=== PATIENT | female | born 2000 | race Caucasian/White ===

== ENCOUNTER 2020-10-18 18:47 | Emergency (ER) | payer OTHER, SELFPAY ==
[2020-10-18 18:59] VITALS: BP 124/80; PULSE 113; RESP 16; TEMP 37.1; O2SAT 99
--- NOTE | 2020-10-18 19:19 | ED.GENADULT ---
HPI - General Adult General Chief complaint: Dental/Oral Stated complaint: Sores In Mouth Time Seen by Provider: 10/18/20 19:19 Source: patient Mode of arrival: ambulatory Limitations: no limitations History of Present Illness HPI narrative: 20-year-old female patient presents to the [facility] with complaints of sores in her mouth that started yesterday. Patient states that she typically gets canker sores due to drinking a lot of acidic drinks and states that she does have a lot of stress as well. Patient states that yesterday three popped up at once and she has been using [id number] Orajel but has not been helping with the pain. Denies taking any Tylenol or ibuprofen. Denies any fevers, body aches or chills. Related Data Home Medications Medication Instructions Recorded Confirmed amitriptyline 10 mg PO HS 10/18/20 10/18/20 desogestrel-ethinyl estradiol 1 tablet PO DAILY 10/18/20 10/18/20 [Isibloom] Allergies Allergy/AdvReac Type Severity Reaction Status Date / Time No Known Allergies Allergy Verified 10/18/20 19:15 Review of Systems Review of Systems: Narrative: CONSTITUTIONAL: Denies fever, chills, or sweats. EYES: Denies visual changes, redness, or discharge. ENT: Denies rhinorrhea, congestion, sore throat, or otalgia. Positive sores to mouth since yesterday CARDIOVASCULAR: Denies chest pain, palpitations, or edema. RESPIRATORY: Denies cough or dyspnea. GASTROINTESTINAL: Denies abdominal pain, nausea, vomiting, or diarrhea. GENITOURINARY: Denies dysuria or hematuria. SKIN: Denies rash or itching. MUSCULOSKELETAL: Denies back pain, joint pain, or myalgia. NEUROLOGIC: Denies headache, numbness, or weakness. PSYCHIATRIC: Denies anxiety or depression. [facility] Past Medical History Medical History (Updated 10/18/20 @ 19:26 by MUKUND Reich) Migraines Comments At the time of my signature I agree with nursing past medical history, surgical, social, and family history. There is no relevant family history pertinent to the presenting complaint. Exam Narrative: Exam Narrative: GENERAL: Well-appearing, well-nourished, and in no acute distress. HEAD: Normocephalic, atraumatic. EYES: PERRLA and EOMI. ENT: Nares clear, no rhinorrhea or epistaxis. Mucous membranes moist. Patient does have some's ulcers one noted on the tip of the tongue, one at the floor of the mouth and another one on the right inner cheek. There is no open wounds or drainage noted. NECK: Supple. No lymphadenopathy CHEST: Clear to auscultation. No respiratory distress. HEART: Regular rate and rhythm. No murmur heard. Normal peripheral pulses. ABDOMEN: Soft, nontender, nondistended, normal active bowel sounds. EXTREMITIES: Normal range of motion. No edema. SKIN: Warm, dry, no rash. NEURO: No focal deficits. Alert and oriented x3. Course Vital Signs Vital signs: Vital Signs Temperature 37.1 C 10/18/20 18:59 Pulse Rate 113 H 10/18/20 18:59 Respiratory Rate 16 10/18/20 18:59 Blood Pressure 124/80 10/18/20 18:59 Pulse Oximetry 99 10/18/20 18:59 Temperature 37.1 C 10/18/20 18:59 Pulse Rate 113 H 10/18/20 18:59 Respiratory Rate 16 10/18/20 18:59 Blood Pressure 124/80 10/18/20 18:59 Pulse Oximetry 99 10/18/20 18:59 Vital signs reviewed The patient has been informed that they may have pre-hypertension or Hypertension based on a BP reading in the department. I recommend that the patient call the primary care provider listed on their discharge instructions or a physician of their choice this week to arrange follow up for further evaluation of possible pre-hypertension or Hypertension Medical Decision Making Differential Diagnosis Differential Diagnosis: Differential diagnosis: Dental caries, periodontal disease, avulsed tooth, tooth infections, mandibular infection, Phillip's angiana, upper tooth infection, dry socket, gingivitis, acute necrotizing ulcerative gingivitis, sialolithiasis. Plan of ca
== END 2020-10-18 19:30 | disposition home or self-care (01) ==
PROVIDERS: Emergency Provider Nurse Practitioner Family; PCP Family Medicine
DX: K12.0 Recurrent oral aphthae (principal)
CPT/HCPCS: 99213; G0463

== ENCOUNTER 2021-06-06 09:33 | Emergency (ER) | payer OTHER, SELFPAY ==
[2021-06-06 09:44] VITALS: BP 112/76; PULSE 81; RESP 16; TEMP 36.6; O2SAT 99
--- NOTE | 2021-06-06 10:02 | ED.GENADULT ---
HPI - General Adult General Chief complaint: Dental/Oral Stated complaint: Toothache Time Seen by Provider: 06/06/21 10:14 Source: patient and RN notes reviewed Mode of arrival: ambulatory Limitations: no limitations History of Present Illness HPI narrative: 21-year-old female presents concern for right upper dental pain. Reports pain started 1 month ago, she has been taking amoxicillin prescribed by dentist for 1 week, however she is not having improvement in symptoms. Reports she has a broken tooth in that area. She denies difficulty swallowing, fever, body aches, nausea. Reports she has been taking Tylenol. complaint: Dental pain Related Data Home Medications Medication Instructions Recorded Confirmed amitriptyline 10 mg PO HS 10/18/20 06/06/21 desogestrel-ethinyl estradiol 1 tablet PO DAILY 10/18/20 06/06/21 [Isibloom] amoxicillin 500 mg PO Q8H 06/06/21 06/06/21 Allergies Allergy/AdvReac Type Severity Reaction Status Date / Time No Known Allergies Allergy Verified 06/06/21 10:03 Review of Systems Review of Systems: CONSTITUTIONAL: Denies malaise, chills, sweats, or fever. EYES: Denies visual changes ENT: Denies rhinorrhea, congestion, sinus pain, otalgia or sore throat. CARDIOVASCULAR: Denies chest pain, palpitations, or edema. RESPIRATORY: Denies cough or dyspnea. GASTROINTESTINAL: Denies abdominal pain, nausea, vomiting SKIN: Denies rash or itching. MUSCULOSKELETAL: Denies myalgia. NEUROLOGIC: Denies headache. All systems reviewed & are unremarkable except as noted in HPI and below PMFSH Past Medical History Medical History (Updated 06/06/21 @ 10:23 by Bernadette Mills NP) Migraines Comments At time of signature, agree with nursing past medical, surgical, social and family history. There is no relevant family history pertinent to the presenting complaint Exam Narrative: GENERAL: Well-appearing, well-nourished, and in no acute distress. HEAD: Normocephalic, atraumatic. EYES: PERRLA, sclera clear, and EOMI. No nystagmus. ENT: Nares clear, turbinates pink, no rhinorrhea or epistaxis. Mucous membranes moist. TM pearly de leon with sharp light reflex bilaterally; no tragal tenderness. Oropharynx without erythema or lesions. Tonsils not enlarged and without exudate. NECK: Supple. No lymphadenopathy. No jugular venous distension, thyromegaly, or carotid bruits. Carotids were easily palpable bilaterally. CHEST: No respiratory distress. Clear to auscultation. No bony deformities, no asymmetry. Speaks in full sentences. HEART: Regular rate and rhythm. No murmur heard. Normal peripheral pulses. ABDOMEN: Soft, nontender, nondistended, normal active bowel sounds, no palpable masses. EXTREMITIES: Normal range of motion. No edema. Normal strength and sensation. SKIN: Warm, dry, no visible rash. NEURO: Alert and oriented x3. No focal deficits. Cranial nerves II through XII grossly intact PSYCH: Normal mood and affect Course Course Emergency Course: Patient is aware of diagnosis, understands and agrees to treatment plan. Anticipatory guidance given. Patient agrees to follow-up as directed and is aware of reasons to seek care at the emergency department. Portions of this record may have been created with voice recognition software Vital Signs Vital signs: Vital Signs Temperature 98 F 06/06/21 09:44 Pulse Rate 81 06/06/21 09:44 Respiratory Rate 16 06/06/21 09:44 Blood Pressure 112/76 06/06/21 09:44 Pulse Oximetry 99 06/06/21 09:44 Temperature 98 F 06/06/21 09:44 Pulse Rate 81 06/06/21 09:44 Respiratory Rate 16 06/06/21 09:44 Blood Pressure 112/76 06/06/21 09:44 Pulse Oximetry 99 06/06/21 09:44 Reviewed. Medical Decision Making MDM Narrative Medical decision making narrative: Patients pain and complaint coupled with physical findings are consistant with dentalgia. There are no focal signs of space occupying lesions that are compromising to the airway; no dysphagia, odynoph
== END 2021-06-06 10:33 | disposition home or self-care (01) ==
PROVIDERS: Emergency Provider Nurse Practitioner; PCP Family Medicine
DX: K08.89 Other specified disorders of teeth and supporting structures (principal); F41.9 Anxiety disorder, unspecified
CPT/HCPCS: 99213; G0463

== ENCOUNTER 2021-11-13 18:14 | Emergency (ER) | payer OTHER, SELFPAY ==
[2021-11-13 18:21] VITALS: BP 110/84; PULSE 77; RESP 16; TEMP 36.7; O2SAT 100
--- NOTE | 2021-11-13 19:03 | ED.URI ---
HPI - URI/Sore Throat General Chief Complaint: Upper Respiratory Infection Stated Complaint: Sore Throat Time Seen by Provider: 11/13/21 19:03 Source: patient and RN notes reviewed Mode of arrival: ambulatory Limitations: no limitations History of Present Illness HPI Narrative: 21-year-old female presenting for complaint of hoarse voice, onset today. She states 4 days ago throat felt scratchy and she had a low-grade fever of 100.4. She has been taking cough drops for symptoms. She denies associated headache, nausea, sinus congestion, fevers or chills. She denies sick contacts. She is not vaccinated for COVID or flu. Related Data Allergies Allergy/AdvReac Type Severity Reaction Status Date / Time No Known Allergies Allergy Verified 11/13/21 18:41 Review of Systems Review of Systems: CONSTITUTIONAL: Denies malaise, chills, sweats, fever EYES: Denies visual changes, redness, or discharge ENT: Denies sinus pain, otalgia CARDIOVASCULAR: Denies chest pain, palpitations, edema RESPIRATORY: Reports cough Denies dyspnea GASTROINTESTINAL: Denies abdominal pain, nausea, vomiting, diarrhea SKIN: Denies rash or itching MUSCULOSKELETAL: Denies myalgia NEUROLOGIC: Denies headache [facility] Past Medical History Medical History (Updated 11/13/21 @ 19:09 by Asia Chahal, ROCK SINGER) Migraines Exam Narrative: GENERAL: well appearing, nontoxic no acute distress. HEAD: Normocephalic EYES: conjunctivae clear ENT: Mucous membranes moist. TM pearly de leon with dull light reflex bilaterally; no tragal tenderness. Oropharynx erythematous without lesions or exudate, no drooling, no hoarseness, no trismus, uvula midline. Voice is hoarse, No tripod positioning, muffled voice, soft palate or pharyngeal wall bulging NECK: Supple. No lymphadenopathy CHEST: Clear to auscultation, breath sounds equal. No wheezing, rhonchi, rales, or stridor. No respiratory distress, speaks in full sentences. HEART: Regular rate and rhythm. No murmur heard. SKIN: Warm, dry, no rash. NEURO: Alert and oriented x3. PSYCH: Normal mood and affect Course Course Emergency Course: Patient is aware of diagnosis, understands and agrees to treatment plan. Anticipatory guidance given. Patient agrees to follow-up as directed and is aware of reasons to seek care at the emergency department. Portions of this record may have been created with voice recognition software Level of Care: Express Care Visit Vital Signs Vital signs: Vital Signs Temperature 98.1 F 11/13/21 18:21 Pulse Rate 77 11/13/21 18:21 Respiratory Rate 16 11/13/21 18:21 Blood Pressure 110/84 11/13/21 18:21 Pulse Oximetry 100 11/13/21 18:21 Temperature 98.1 F 11/13/21 18:21 Pulse Rate 77 11/13/21 18:21 Respiratory Rate 16 11/13/21 18:21 Blood Pressure 110/84 11/13/21 18:21 Pulse Oximetry 100 11/13/21 18:21 reviewed MDM - URI/Sore Throat MDM Narrative Medical decision making narrative: strep negative she is advised on supportive treatment at this time. Differential Diagnosis Differential diagnosis: Likely upper respiratory infection, sinusitis and viral infection Lab Data Attestation: I reviewed the patient's lab results. Labs: Strep Screen Presumptive Negative *(Reference Range: Negative)* Discharge Plan Discharge Clinical Impression: Pharyngitis Qualifiers: Pharyngitis/tonsillitis etiology: unspecified etiology Qualified Code(s): J02.9 - Acute pharyngitis, unspecified Patient Disposition: Home, Self-Care Condition: Stable Instructions: Antibiotic Form, Pharyngitis (ED) Additional Instructions: Rapid strep swab was negative today You will be notified in a few days if the culture comes back positive for strep, and appropriate antibiotics will be called in at that time. if symptoms are due to a viral illness, it is not treated with antibiotics. Viral symptoms can be present for up to 10-14 days
== END 2021-11-13 19:10 | disposition home or self-care (01) ==
PROVIDERS: Emergency Provider Nurse Practitioner Family; PCP Family Medicine
DX: J02.9 Acute pharyngitis, unspecified (principal)
CPT/HCPCS: 87081; 87880; 99213; G0463

== ENCOUNTER 2022-05-20 08:16 | Emergency (ER) | payer OTHER, SELFPAY ==
[2022-05-20 08:20] VITALS: BP 124/67; PULSE 76; RESP 16; TEMP 36.4; O2SAT 100
--- NOTE | 2022-05-20 08:30 | ED.SKABFB ---
HPI - Skin/Abscess/Foreign Bdy General Chief complaint: Skin/Abscess/Foreign Body Stated complaint: poss hand foot mouth Time Seen by Provider: 05/20/22 08:25 Source: patient and RN notes reviewed History of Present Illness HPI narrative: patient is a 22-year-old female who presents to the Urgent Care with complaints of possible [id number] after exposure at work. Patient states that this morning she woke up with 2 blisters around her upper lip. Patient denies any fevers or other symptoms. No acute distress noted. Patient aware of the plan of care. Some parts of this dictation were generated by voice recognition software and may contain typographical and/or grammatical inaccuracies. Related Data Home Medications Medication Instructions Recorded Confirmed amitriptyline 10 mg tablet 10 mg PO QHS 05/20/22 05/20/22 Allergies Allergy/AdvReac Type Severity Reaction Status Date / Time No Known Allergies Allergy Verified 05/20/22 08:26 Review of Systems Review of Systems: CONSTITUTIONAL: Denies fever, chills, or sweats. EYES: Denies visual changes, redness, or discharge. ENT: Denies rhinorrhea, congestion, sore throat, or otalgia. CARDIOVASCULAR: Denies chest pain, palpitations, or edema. RESPIRATORY: Denies cough or dyspnea. GASTROINTESTINAL: Denies abdominal pain, nausea, vomiting, or diarrhea. GENITOURINARY: Denies dysuria or hematuria. SKIN: Denies rash or itching. Reports blisters around the upper lip MUSCULOSKELETAL: Denies back pain, joint pain, or myalgia. NEUROLOGIC: Denies headache, numbness, or weakness. All other systems reviewed are negative, except as documented in HPI. [facility] Past Medical History Medical History (Updated 05/20/22 @ 08:41 by MUKUND Reece) Migraines Comments At the time of my signature, I reviewed and agree with the nursing past medical, surgical, social, and family history. There is no relevant family history pertinent to the patient complaint. Exam Narrative: GENERAL: This is a well-nourished, well-developed patient, in no apparent distress. HEAD: normocephalic, atraumatic. EYES: PERRL. Sclera clear/white. Vision is grossly intact. EARS: External ears normal NOSE: External nose normal with no obvious nasal discharge, nares without redness, no rhinorrhea. THROAT: Mucous membranes moist, posterior pharynx clear. NECK: Neck supple SKIN: 2 blisters to the upper lip suspected [id number]-[id number], intact with no suspicious lesions or rash, good texture and turgor. NEURO: awake, alert, and oriented to person, place and time. There were no obvious focal neurologic abnormalities. EXTREMITIES: No clubbing, cyanosis, or edema. Course Course Level of Care: Express Care Visit Vital Signs Vital signs: Vital Signs Temperature 97.6 F 05/20/22 08:20 Pulse Rate 76 05/20/22 08:20 Respiratory Rate 16 05/20/22 08:20 Blood Pressure 124/67 05/20/22 08:20 Pulse Oximetry 100 05/20/22 08:20 Oxygen Delivery Room Air 05/20/22 08:20 Temperature 97.6 F 05/20/22 08:20 Pulse Rate 76 05/20/22 08:20 Respiratory Rate 16 05/20/22 08:20 Blood Pressure 124/67 05/20/22 08:20 Pulse Oximetry 100 05/20/22 08:20 Oxygen Delivery Room Air 05/20/22 08:20 Reviewed MDM - Skin/Abscess/Foreign Bdy MDM Narrative Medical decision making narrative: Considering that you have blisters around the mouth and you have recently been exposed to [id number] at work, it is highly suspected that you have now been infected with the same virus. There is no treatment for the virus. Supportive care with Tylenol, ibuprofen, lidocaine [id number]-wyq-ydxwriu and cool fluids are appropriate. Treat fevers as needed. Follow workplace guidelines on when to return to work. Differential Diagnosis Differential diagnosis: Likely abscess of skin or subcutaneous tissue, viral exanthem, dermatophytosis, allergic reaction to drug, cellulitis, eczema, insect bites and impetigo Disch
== END 2022-05-20 08:42 | disposition home or self-care (01) ==
PROVIDERS: Emergency Provider Nurse Practitioner Family; PCP Family Medicine
DX: B08.4 Enteroviral vesicular stomatitis with exanthem (principal)
CPT/HCPCS: 99211; G0463